=== PATIENT | male | born 1965 | race Caucasian/White ===

== ENCOUNTER → 2018-02-15 | Outpatient (CLI) | payer OTHER ==
--- NOTE | 2018-02-15 19:51 | CONS ---
CONSULTATION DATE OF SERVICE: 02/15/2018 52-year-old gentleman who has [facility] for possible obstructive sleep apnea-hypopnea syndrome. HISTORY OF PRESENT ILLNESS/SLEEP-WAKE EVALUATION: The patient usual sleep schedule on working days is from 8:00 p.m. to 4:30 a.m. and weekend from 9:00 p.m. until 11:00 a.m. No problems with falling asleep although patient has TV set in bedroom. He wakes up from sleep 2 times with episodes of nocturia. According to his , he has loud snoring and witnessed episodes of stopped breathing during the sleep. No history of hypnagogic hallucinations, sleep paralysis or cataplexy. In the morning patient wakes up tired. Worries about his sleep. Hepler Sleepiness Scale significantly increased to 14. During the day he takes at least 1 nap. According to him he can take naps any time. PAST MEDICAL HISTORY: Positive for hypertension, depression. PAST SURGICAL HISTORY: Left shoulder surgery. MEDICATIONS: Dyazide, Wellbutrin, losartan, metoprolol, citalopram, aspirin. FAMILY HISTORY: Heart problems, stroke, arthritis, cancer, diabetes. SOCIAL HISTORY: Negative for smoking. Alcohol consumption occasional. REVIEW OF SYSTEMS: Awakenings from sleep, sleepiness during the day. PHYSICAL EXAM: GENERAL gentleman without distress. VITAL SIGNS BP 104/71, HR 74, RR 16, height 6 feet 0, weight 230, BMI 31.1, temperature 97.9, oxygen saturation room air 96%. HEENT PERRLA, EOMI, evaluation of oropharynx showed low position of soft palate, asymmetric nose, nasal septum deviation. NECK Wide neck 17 inches in circumference. Supple, no JVD. Thyroid is not palpable. LUNGS Clear to percussion and to auscultation. Good air exchange. No wheezing or rhonchi. HEART S1, S2 regular. No murmurs, gallops, or rubs. ABDOMEN Soft and nontender. Bowel sounds are present. No organomegaly appreciated. EXTREMITIES No clubbing or cyanosis. HOTEL GUEST SERVICE AGENT Awake, alert, and oriented X3. Cranial nerves 2 to 7 intact. There is no fasciculation or atrophy. noted. No focal deficits observed. IMPRESSION: 1. Snoring witnessed episodes of stopped breathing during the sleep, awakenings from sleep, sleepiness during the day, wide neck, obstructive sleep apnea-hypopnea syndrome. 2. Nasal septum deviation. 3. Hypertension. 4. Depression. 5. Status post left shoulder surgery. PLAN: 1. Polysomnography for evaluation of patient's breathing during sleep. 2. CPAP/BiPAP titration if sleep study confirms obstructive sleep apnea-hypopnea syndrome. 3. Preferable position during sleep on the side. 4. No driving if patient feels any sleepiness. 5. I will see patient for follow up visit to explain results of testing and following plan. Henrique Mujica MD, PhD, FAASM Diplomat of [employer] [place] [employer] Thread Milling Machine Set Up Operator of [facility] [place] MMODL / IJN: [id number] /
== END | disposition home or self-care (01) ==
LOC: SLEEP 15:02
PROVIDERS: ATTEND Internal Medicine
DX: G47.33 Obstructive sleep apnea (adult) (pediatric) (principal); J34.2 Deviated nasal septum; I10 Essential (primary) hypertension; F32.9 Major depressive disorder, single episode, unspecified; Z79.899 Other long term (current) drug therapy; Z79.82 Long term (current) use of aspirin; Z98.890 Other specified postprocedural states
CPT/HCPCS: 99211

== ENCOUNTER → 2018-05-17 | Outpatient (CLI) | payer OTHER ==
--- NOTE | 2018-05-17 16:45 | PN ---
PROGRESS NOTE DATE OF SERVICE: 05/17/2018 The patient has a primary care physician but does not remember the name. Patient recently had a home sleep apnea test which showed that he has sleep apnea, and subsequently he received an automatic CPAP unit. Today is his first visit with his CPAP machine. I explained the results of his home sleep apnea test to the patient in detail. With the machine he feels better in the morning after he wakes up. I checked his CPAP unit. Pressure is in the range of 5 to 15 cm of water. Most of the time pressure is in the range of 12.8 cm of water. Leak is 28 L/minute. During the last month, the patient had to change his mask. Usage is 24/30 nights and /30 nights for more than 4 hours. Average usage is 5.4 hours. At present, after changing masks, the patient does not feel any problems related to the usage of the machine. Apnea-hypopnea index is only 0.3. Leak is up to 28 L/minute. MEDICATIONS: 1. Dyazide. 2. Wellbutrin. 3. Losartan. 4. Metoprolol. 5. Citalopram. 6. Aspirin. PHYSICAL EXAMINATION: GENERAL: A pleasant patient in no distress. VITAL SIGNS: BP 120/80, HR 74, RR 16, weight 236, temperature 97.6, oxygen saturation at room air 97%. HEENT: PERRLA, EOMI. Evaluation of oropharynx showed tongue protrudes midline. Low position of soft palate. Slight asymmetry of the nose. NECK: Supple. No JVD. Thyroid is not palpable. LUNGS: Clear to percussion and to auscultation. Good air exchange. No wheezing or rhonchi. HEART: S1, S2 regular. No murmurs, gallops or rubs. ABDOMEN: Soft and nontender. Bowel sounds are present. No organomegaly appreciated. EXTREMITIES: No clubbing or cyanosis. BUDGET RECORD CLERK: Awake, alert, and oriented X3. Cranial nerves 2 to 7 intact. There is no fasciculation or atrophy. noted. No focal deficits observed. IMPRESSION: 1. Obstructive sleep apnea-hypopnea syndrome, under good control with CPAP treatment. Patient demonstrated borderline compliance with treatment, benefitting from treatment. 2. Hypertension. 3. History of depression. 4. Nasal septum deviation. 5. Status post left shoulder surgery. PLAN: 1. Patient will continue to use CPAP equipment every night for the whole night. 2. Watching weight. 3. Sleep hygiene with regular time in bed for at least 8 hours. 4. No driving if feeling any sleepiness. 5. We will maintain prescription for all necessary CPAP supplies, including mask, tube, filters. Thank you very much for allowing me to participate in the management of your patient. Sincerely, Henrique Mujica MD, PhD, FAASM Diplomat of [employer] Care Director of [facility] [place] MMODL / WERON: [id number] /
== END | disposition home or self-care (01) ==
LOC: SLEEP 15:20
PROVIDERS: ATTEND Internal Medicine
DX: G47.33 Obstructive sleep apnea (adult) (pediatric) (principal); I10 Essential (primary) hypertension; J34.2 Deviated nasal septum; F32.9 Major depressive disorder, single episode, unspecified; Z99.89 Dependence on other enabling machines and devices; Z98.890 Other specified postprocedural states; Z79.82 Long term (current) use of aspirin; Z79.899 Other long term (current) drug therapy